=== PATIENT | female | born 1990 | race Caucasian/White ===

== ENCOUNTER 2022-05-23 21:07 | Emergency (ER) | payer OTHER | END 2022-05-23 22:05 | disposition home or self-care (01) | LOC: BURERS 21:07 | DX: S43.402A Unspecified sprain of left shoulder joint, initial encounter (principal); W19.XXXA Unspecified fall, initial encounter | CPT/HCPCS: 99283 ==

== ENCOUNTER 2022-05-24 00:41 | Emergency (ER) | payer OTHER | END 2022-05-24 04:06 | disposition home or self-care (01) | LOC: BURERS 00:41 | DX: S43.402A Unspecified sprain of left shoulder joint, initial encounter (principal); S20.212A Contusion of left front wall of thorax, initial encounter; X58.XXXA Exposure to other specified factors, initial encounter | CPT/HCPCS: 71250 ==